=== PATIENT | female | born 1960 | race Caucasian/White ===

== ENCOUNTER 2021-06-08 00:03 | Emergency (ER) | payer OTHER ==
[2021-06-08] MEDS ORDERED: Ketorolac 30 MG/ML SDV IM ONE (00:32)
--- NOTE | 2021-06-08 00:32 | EDM.PDOC ---
ED HPI GENERAL MEDICAL PROBLEM - General Chief Complaint: Upper Extremity Injury/Pain Stated Complaint: LEFT SHOULDER PAIN Time Seen by Provider: 06/08/21 00:13 Source of Information: Reports: Patient History Limitations: Reports: No Limitations - History of Present Illness INITIAL COMMENTS - FREE TEXT/NARRATIVE: Is a 60-year-old female presents with her to the ED for evaluation of acute onset of severe left upper extremity pain that woke her from sleep. Patient reports that her arm has been sore for most of the day and she was actually seen at the [facility] earlier in the day for lower back spasms and sciatica. She reports that tonight she took half of the muscle relaxant before going to bed and acutely woke up around 1130 this evening with severe left shoulder pain radiating down her arm and up to her neck. She is also having pain between the scapula. It is equivocal whether the pain worsens with deep inspiration. She denies any shortness of breath, nausea or vomiting, diaphoresis or injury. She does have a history for hypertension but was taken off of her medications after losing a considerable amount of weight. She unfortunately has gained some back and her blood pressure has been creeping upward. She denies any distal numbness or tingling. The pain is exacerbated with certain movements. It seems to focus over the distal deltoid muscle on the left. - Related Data Allergies Allergy/AdvReac Type Severity Reaction Status Date / Time Sulfa (Sulfonamide Allergy Rash Verified 06/08/21 00:30 Antibiotics) Home Meds: Home Meds NK [No Known Home Meds] 06/08/21 [History] Social & Family History - Tobacco Use Tobacco Use Status *Q: Never Tobacco User - Caffeine Use Caffeine Use: Reports: Coffee, Soda, Tea - Recreational Drug Use Recreational Drug Use: No Review of Systems - Review of Systems Review Of Systems: See Below Constitutional: Reports: No Symptoms Respiratory: Reports: No Symptoms Cardiovascular: Reports: No Symptoms GI/Abdominal: Reports: No Symptoms Genitourinary: Reports: No Symptoms Musculoskeletal: Reports: Shoulder Pain (Left shoulder radiating to the neck and down the arm), Muscle Pain, Muscle Stiffness (Left trapezius muscle stiffness and spasm) Skin: Reports: No Symptoms Neurological: Reports: No Symptoms Psychiatric: Reports: Anxiety ED EXAM, GENERAL - Physical Exam Exam: See Below Exam Limited By: No Limitations General Appearance: Alert, Anxious, Moderate Distress Head: Atraumatic, Normocephalic Neck: Normal Inspection, Full Range of Motion, Tender Lateral (Mild tenderness with palpation over the trapezius and strap muscles), Other (Bilateral trapezius muscle spasm). No: Tender Midline Respiratory/Chest: No Respiratory Distress, Lungs Clear, Normal Breath Sounds Cardiovascular: Normal Peripheral Pulses, Regular Rate, Rhythm, No Murmur Peripheral Pulses: 2+: Radial (L), Radial (R) Extremities: Limited Range of Motion (Pain over the deltoid with abduction and external rotation of the shoulder), Other (Tenderness with palpation over the left distal deltoid muscle. This reproduces the pain the patient's been experiencing.). No: Joint Swelling, Redness Neurological: Alert, Oriented, Normal Cognition, No Motor/Sensory Deficits Psychiatric: Anxious Skin Exam: Warm, Dry, Intact, Normal Color, No Rash #1 Interpretation EKG Date: 06/08/21 Time: 00:16 Rhythm: NSR Rate (Beats/Min): 91 [place]: Normal P-Wave: Enlarged QRS: Normal ST-T: Normal QT: Normal Comparison: NA - No Prior EKG Course - Vital Signs Last Recorded V/S: Last Vital Signs Temp 36.6 C 06/08/21 00:23 Pulse 92 06/08/21 00:23 Resp 16 06/08/21 00:23 BP 164/102 H 06/08/21 00:23 Pulse Ox 98 06/08/21 00:23 - Orders/Labs/Meds Orders: Active Orders 24 hr Category Date Time Status Shoulder Comp Lt [CR] Stat Exams 06/08/21 00:59 Taken CRP [C-REACTIVE PROTEIN] [CHEM] Stat Lab 06/08/21 01:49 Ordered EKG 12 Lead [EK] Routine Ther 06/08/21 00:09 Ordered Labs: Laboratory Tests 06/08/21 06/08/21 06/08/21 Range/Units 00:01 00:01 00:01 WBC 6.9 (4.5-11.0) K/uL RBC 4.73 (3.30-5.50) M/uL Hgb 13.0 (12.0-15.0) g/dL Hct 41.1 (36.0-48.0) % MCV 87 (80-98) fL MCH 28 (27-31) pg MCHC 32 (32-36) % Plt Count 305 (150-400) K/uL Neut % (Auto) 59.0 (36-66) % Lymph % (Auto) 29.3 (24-44) % [place] % (Auto) 9.9 H (2-6) % Eos % (Auto) 1.5 L (2-4) % Baso % (Auto) 0.3 (0-1) % Sodium 139 L (140-148) mmol/L Potassium 3.8 (3.6-5.2) mmol/L Chloride 102 (100-108) mmol/L Carbon Dioxide 28 (21-32) mmol/L Anion Gap 12.8 (5.0-14.0) mmol/L BUN 17 (7-18) mg/dL Creatinine 0.9 (0.6-1.0) mg/dL Est Cr Clr Drug Dosing 65.45 mL/min Estimated GFR (MDRD) > 60 (>60) Glucose 87 (74-106) mg/dL Calcium 9.1 (8.5-10.1) mg/dL Magnesium 2.0 (1.8-2.4) mg/dL Total Bilirubin 0.3 (0.2-1.0) mg/dL AST 20 (15-37) U/L ALT 25 (12-78) U/L Alkaline Phosphatase 68 (46-116) U/L Creatine Kinase 78 (26-192) U/L Troponin I < 0.017 (0.000-0.056) ng/mL Total Protein 6.9 (6.4-8.2) g/dL Albumin 3.8 (3.4-5.0) g/dL Globulin 3.1 (2.3-3.5) g/dL Albumin/Globulin Ratio 1.2 (1.2-2.2) Meds: Medications Discontinued Medications Generic Name Dose Route Start Last Admin Trade Name Freq PRN Reason Stop Dose Admin Ketorolac Tromethamine 30 mg 06/08/21 00:32 06/08/21 00:50 Ketorolac 30 Mg/Ml Sdv IM 06/08/21 00:33 30 mg ONETIME ONE Administration - Re-Assessments/Exams Free Text/Narrative Re-Assessment/Exam: 06/08/21 02:01 I reviewed the x-ray of the left shoulder (3 view) showing significant osteoarthritis with bony hypertrophy. There is no evidence for acute fracture or dislocation. I reviewed the patient's labs showing a normal CBC, comprehensive metabolic profile, creatinine kinase, magnesium, troponin I, and C-reactive protein. Patient received Toradol 30 mg IM and has had improvement in her pain. It is possible the symptoms she is exhibiting are due to fibromyalgia or polymyalgia rheumatica. She may want to discuss with her primary care provider whether a work-up for fibromyalgia is warranted if this be comes a recurrent process. All questions were answered and the patient was discharged in satisfactory condition. Departure - Departure Time of Disposition: 02:00 Disposition: Home, Self-Care 01 Clinical Impression: Left shoulder pain Qualifiers: Chronicity: acute Qualified Code(s): M25.512 - Pain in left shoulder - Discharge Information Instructions: Shoulder Pain Referrals: PCP,None [Primary Care Provider] - Forms: ED Department Discharge Care Plan Goals: It appears the pain was arising from your deltoid muscle. I did not find anything that was worrisome in the work-up today and I am glad you are feeling better after the shot of Toradol. If this recurs you may want to take ibuprofen 600 mg every 6 hours as needed. As we discussed this could be a form of fibromyalgia. I would discuss with your primary provider whether it be worthwhile doing a further investigation for this. Sepsis Event Note (ED) - Evaluation Sepsis Screening Result: No Definite Risk - Focused Exam Vital Signs: Vital Signs Temp Pulse Resp BP Pulse Ox 06/08/21 00:23 36.6 C 92 16 164/102 H 98 - Problem List & Annotations (1) Left shoulder pain SNOMED Code(s): 46023548, [id number] Code(s): M25.512 - PAIN IN LEFT SHOULDER Status: Acute Priority: Medium Current Visit: Yes Qualifiers: Chronicity: acute Qualified Code(s): M25.512 - Pain in left shoulder - Problem List Review Problem List Initiated/Reviewed/Updated: Yes - My Orders Last 24 Hours: My Active Orders 06/08/21 00:09 EKG 12 Lead [EK] Routine 06/08/21 00:59 Shoulder Comp Lt [CR] Stat 06/08/21 01:49 CRP [C-REACTIVE PROTEIN] [CHEM] Stat - Assessment/Plan Last 24 Hours: My Active Orders 06/08/21 00:09 EKG 12 Lead [EK] Routine 06/08/21 00:59 Shoulder Comp Lt [CR] Stat 06/08/21 01:49 CRP [C-REACTIVE PROTEIN] [CHEM] Stat
--- NOTE | 2021-06-08 08:52 | CR ---
Shoulder Comp Lt CLINICAL HISTORY: Acute left shoulder pain FINDINGS: There is no acute fracture or dislocation in the left shoulder. There is moderate periarticular spurring in the glenohumeral joint inferiorly. There is also spurring at the AC joint. There is flattening of the superior humerus which abuts the underside of the acromium. Impression: Moderate to severe osteoarthritic change Humeral head appears to abut the underside of the acromion and likely causes impingement on the rotator cuff
== END 2021-06-08 02:11 | disposition home or self-care (01) ==
LOC: JP.ED 00:03
DX: M25.512 Pain in left shoulder (principal); Z88.2 Allergy status to sulfonamides
CPT/HCPCS: 36415; 73030; 80053; 82550; 83735; 84484; 85025; 86140; 93005; 96372; 99284; J1885